=== PATIENT | male | born 1970 | race African-American/Black ===

== ENCOUNTER 2022-11-11 09:26 | Emergency (ER) | payer OTHER, SELFPAY ==
[~2022-11-11] VITALS: Ht 170.2 cm; Wt 84.1 kg
[2022-11-11] MEDS ORDERED: MethylPREDNISolone SOD SUCC 125 MG/2 ML VIAL IVP ONE (11:30)
[2022-11-11] MEDS ORDERED: FAMOTIDINE 20 MG/2 ML VIAL IVP ONE (11:30)
[2022-11-11] MEDS ORDERED: DiphenhydrAMINE HCL 50 MG/ML VIAL IVP ONE (11:30)
[2022-11-11 14:04] VITALS: BP 126/82; PULSE 84; RESP 18
[2022-11-11] MEDS ORDERED: PRED-554 PO (14:04)
== END 2022-11-11 14:45 | disposition home or self-care (01) ==
LOC: EMS 09:29
DX: T63.441A Toxic effect of venom of bees, accidental (unintentional), initial encounter (principal); Y92.89 Other specified places as the place of occurrence of the external cause
CPT/HCPCS: 99284; 96374; 96375; J1200; J3490; J2930